=== PATIENT | female | born 1985 | race Asian ===

== ENCOUNTER 2019-09-22 22:26 | Emergency (ER) | payer MEDICAID ==
[~2019-09-22] VITALS: Ht 162.6 cm; Wt 60.8 kg
[2019-09-22 22:32] VITALS: BP 115/40; Ht 162.6 cm; Wt 60.8 kg
== END 2019-09-22 22:57 | disposition home or self-care (01) ==
LOC: ED 22:26
DX: T16.1XXA Foreign body in right ear, initial encounter (principal); W45.8XXA Other foreign body or object entering through skin, initial encounter; Y93.89 Activity, other specified; Y92.89 Other specified places as the place of occurrence of the external cause; Y99.8 Other external cause status